=== PATIENT | female | born 1985 | race Caucasian/White ===

== ENCOUNTER 2017-04-17 15:47 | Emergency (ER) | payer OTHER ==
[~2017-04-17] VITALS: Ht 167.6 cm; Wt 63.5 kg
--- NOTE | ~2017-04-17 | CR133 ---
[facility] A Service of [facility] RADIOLOGY TEXT RESULTS PATIENT: MARISA COLLIER LOCATION: CFTX : 89 UNIT #: [id number] AGE: [address]: Blanca Solorio SEX: F ORDER DR: [id number] [facility] [address] [place], [place] [address] [id number] E MR#: [id number] Acc #: [id number] NAME: MARISA COLLIER : 1985 SEX: F STUDY DATE/TIME: 04/17/2017 16:49 UNIT: [facility]WI ROOM: STUDY DESCRIPTION: CR Forearm 2 View Rt Attending Physician: Blanca Solorio Pa-C Ordering Physician: [facility] Primary Care Physician: Marina Milian M.D. MEDICAL IMAGING REPORT This report is preliminary unless electronic signature is present EXAM Right forearm series 04/17/2017 HISTORY Right hand and forearm pain and swelling. COMPARISON STUDIES Right hand series 04/17/2017 FINDINGS Two views of the right forearm were obtained. AP and lateral views of the forearm show no evidence of fracture or destructive bone lesion. No periosteal elevation is seen. No radiodense foreign bodies are noted. Adjacent soft tissue structures are normal. IMPRESSION Normal forearm. Dictated by... Marleni Carlson M.D. THIS IS AN ELECTRONICALLY VERIFIED REPORT Marleni Carlson M.D. at 04/18/2017 7:54 PM CPR/pcl TD: 04/17/2017 22:44 JOB #: [id number] MEDICAL IMAGING REPORT Page 1 of 1 COPY
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
[~2017-04-17 15:47] MED LIST: ATIVAN0.5 M1 PO; HYDROXYZINE HCL10 MG PO
== END 2017-04-17 17:55 | disposition home or self-care (01) ==
LOC: CED 15:47 → CFTX 15:47
DX: S60.221A Contusion of right hand, initial encounter (principal); S50.11XA Contusion of right forearm, initial encounter; J45.909 Unspecified asthma, uncomplicated; F41.0 Panic disorder [episodic paroxysmal anxiety]; F17.200 Nicotine dependence, unspecified, uncomplicated; V43.52XA Car driver injured in collision with other type car in traffic accident, initial encounter; Y93.89 Activity, other specified; Y92.410 Unspecified street and highway as the place of occurrence of the external cause
CPT/HCPCS: 73090; 73130; 99284